=== PATIENT | female | born 1970 | race Caucasian/White ===

== ENCOUNTER → 2017-09-25 | Outpatient (CLI) | payer BC ==
[~2017-09-25] MED LIST: IBUP-1050 PO; NAPR1TAB9 PO; OXYC5TAB PO
--- NOTE | 2017-09-25 12:32 | DIAGNOSTIC IMAGING REPORT ---
VIDEO SWALLOW STUDY CLINICAL HISTORY: Scleroderma. Developing dysphagia. COMPARISON STUDY: No priors. FLUOROSCOPY TIME: 1.7 minutes. FINDINGS: Fluoroscopic guidance was provided to the Department of Speech Pathology in performing a video swallow study. The patient consumed barium impregnated pudding, cracker with paste, nectar thick liquid, and thin barium while the swallowing mechanism was observed in real-time. No penetration or aspiration was seen with any of the sampled textures. IMPRESSION: No penetration or aspiration was seen with any of the sampled textures. See dedicated speech pathology report for detailed findings and recommendations. Dictated: 09/25/2017 12:14 PM Transcribed: 09/25/2017 12:32 PM [email or web address] Electronically signed by: Sloan Hernandez M.D. 09/25/2017 12:34 PM Dictated Date/Time: 09/25/2017 12:14 PM
--- NOTE | 2017-09-26 14:27 | SWALLOWING EVALUATION ---
REFERRING SPEECH PATHOLOGIST: n/a HISTORY: This 47 year-old female was referred for a VFSS at [facility] in order to rule out aspiration and address c/o increased solid food dysphagia. The patient has a PMH significant for scleroderma (diagnosed April 2017). The patient reports that the disease is advancing rapidly. She is symptomatic in all extremities, having more difficulty taking deep breaths, and has limited oral opening. Currently the patient's diet level is regular. PROCEDURE: The patient was seen in the Radiology Department of [facility] for the VFSS. Cursory examination of the oral cavity revealed adequate dentition. Movement of the articulators was impaired as evidenced by limited oral opening. Speech was 100% intelligible. The patient was seated on a stool and was viewed in both the Anterior-Posterior (A-P) and Lateral planes. Volitional phonation exercises completed in the A-P plane revealed bilateral vocal fold movement and vocal intensity within functional limits; although, the patient has complaints of intermittent hoarseness that she attributes to reflux. In the lateral plane, the patient was given the following boluses: 1 tsp. thin liquid barium x 2, single swallow thin liquid barium self-presented from a cup, sequential swallows of thin liquid barium self-presented from a cup, 1 tsp. nectar-thick liquid barium, single swallow nectar-thick liquid barium self-presented from a cup, 1 tsp. barium pudding, and 1 club cracker with barium pudding. The patient was then repositioned into the A-P plane and given 1 tsp. barium pudding. RESULTS: Oral Stage: Labial seal complete. Able to hold thin liquid bolus between tongue and palate. Prolonged mastication d/t incomplete mandibular ROM. Initiation of lingual movement for bolus transfer was timely and complete. Small collections of bolus remained on tongue and palate after initial swallow of bolus. Initiation of the pharyngeal swallow occurred when the bolus head was at the posterior angle of the ramus. Beginnings of mild oral-stage dysphagia, but no functional implications at this time. Pharyngeal Stage: Velar elevation complete. Laryngeal elevation complete. Anterior hyoid excursion incomplete. Epiglottic inversion and laryngeal vestibular closure complete. Pharyngeal stripping wave present. Pharyngeal contraction in AP plane was incomplete with bilateral pseudodiverticulae after the swallow. Partial distention and duration of PES opening with partial obstruction of bolus flow. Narrow column of contrast between tongue base and pharyngeal wall with vallecular retention present after swallowing all consistencies of contrast. This cleared easily with a second swallow that the patient produced independently. No penetration or aspiration during this study. Mild pharyngeal dysphagia d/t decreased strength and ROM of pharyngeal musculature. Esophageal Stage: A pudding bolus transited the esophagus without impedence. SUMMARY/RECOMMENDATIONS: This patient presents with mild oral-pharyngeal dysphagia characterized diffuse weakness and decreased ROM. The following is recommended: 1. Diet as tolerated 2. Compensatory Strategies: Continue using double swallows to clear oral and pharyngeal residue; alternate solids and liquids during meals 3. Consideration of f/u with outpatient [employer] services to initiate use of some exercises for ROM and strength with the goal of prolonging s/s scleroderma advancement. 4. Consideration of f/u with therapeutic massage therapist with the goal of improving ROM of the TMJ. 5. Consideration of f/u with gastroenterology to manage s/s GERD and/or LPR that patient is experiencing. A summary of the results and recommendations was discussed with the patient immediately following the study and she is anticipating f/u with the referring physician. Thank you for referral of this patient. Please contact me at if any additional information is needed.
== END | disposition home or self-care (01) ==
LOC: C.RAD 10:44
PROVIDERS: ATTEND Internal Medicine
DX: M34.9 Systemic sclerosis, unspecified (principal)